=== PATIENT | male | born 1980 | race African-American/Black ===

== ENCOUNTER 2017-11-02 12:27 | Emergency (ER) | payer MEDICAID ==
[2017-11-02 12:55] VITALS: BP 117/80
[2017-11-02] MEDS ORDERED: Cyclobenzaprine 10 MG Tab ONE (13:20)
[2017-11-02] MEDS ORDERED: Naproxen 500 MG Tab ONE (13:20)
--- NOTE | 2017-11-03 17:50 | ER ---
DATE OF SERVICE: 11/02/2017 HPI: This 37-year-old gentleman fell while fishing landing on his right side. He fell on a rail on the edge of the boat that was about 2 feet off the ground from another boat chain and rocked the boat making him unsteady causing him to fall. He presents complaining of pain in his right hip area below his kidney. It feels better though with the topical ice. He does not feel that he can return to work today. PHYSICAL EXAMINATION: Well-developed, well-nourished, in mild distress. Able to toe and heel walk. Able to bend over and touch his toes. No CVA tenderness. No bruising or ecchymosis. He is tender just at the iliac crest. He is able to flex and extend his torso. ASSESSMENT: 1. Fall. 2. Right hip effusion. PLAN: 1. Naprosyn 500 b.i.d. 2. Flexeril 10 mg t.i.d. 3. Off work for 1 to 2 days. NANCY/LEIA /[id number]
== END 2017-11-02 13:20 | disposition home or self-care (01) ==
LOC: LB.ED 12:27
DX: S70.01XA Contusion of right hip, initial encounter (principal); W17.89XA Other fall from one level to another, initial encounter
CPT/HCPCS: 99283; A9270

== ENCOUNTER 2022-08-25 13:07 | Emergency (ER) | payer MEDICARE ==
[2022-08-25] MEDS: Ketorolac 60 MG/2 ML SDV IM ONE ×3 (13:34→13:40)
[2022-08-25] MEDS ORDERED: Ketorolac 60 MG/2 ML SDV ONE (13:37)
[2022-08-25 13:52] VITALS: BP 127/89; PULSE 76
[2022-08-25] MEDS ORDERED: Ibuprofen 400 MG Tab ONE (14:00)
== END 2022-08-25 14:18 | disposition home or self-care (01) ==
LOC: MERGE 13:07 → LB.ED 13:07
DX: M79.601 Pain in right arm (principal)
CPT/HCPCS: 99283; A9270-GY; J1885

== ENCOUNTER 2023-01-01 01:14 | Emergency (ER) | payer MEDICARE, MEDICAID ==
[2023-01-01] MEDS ORDERED: Indomethacin 25 MG Cap ONE (02:00)
[2023-01-01 02:02] VITALS: BP 119/86; PULSE 95
[2023-01-01] MEDS: Indomethacin 25 MG Cap PO STA (02:10)
== END 2023-01-01 02:20 | disposition home or self-care (01) ==
LOC: LB.ED 01:14
DX: M10.9 Gout, unspecified (principal); F17.210 Nicotine dependence, cigarettes, uncomplicated; E66.9 Obesity, unspecified; Z86.16 Personal history of COVID-19; Z79.899 Other long term (current) drug therapy; Z68.35 Body mass index [BMI] 35.0-35.9, adult
CPT/HCPCS: 99283; A9270-GY

== ENCOUNTER 2023-03-31 03:51 | Emergency (ER) | payer MEDICARE, MEDICAID ==
[2023-03-31] MEDS ORDERED: Gabapentin 300 MG Cap PO ONE (04:13)
[2023-03-31] MEDS ORDERED: Cyclobenzaprine 10 MG Tab PO ONE (04:13)
[2023-03-31] MEDS ORDERED: Ketorolac 60 MG/2 ML SDV IM ONE (04:14)
[2023-03-31] MEDS ORDERED: Cyclobenzaprine 10 MG Tab ONE (04:20)
[2023-03-31] MEDS ORDERED: Ketorolac 60 MG/2 ML SDV ONE (04:20)
[2023-03-31] MEDS ORDERED: Cyclobenzaprine 5 MG Tab ONE (04:30)
[2023-03-31] MEDS ORDERED: Gabapentin 300 MG Cap ONE (04:30)
[2023-03-31 04:44] VITALS: BP 116/79; PULSE 91
== END 2023-03-31 04:35 | disposition home or self-care (01) ==
LOC: SUPCPDRO 03:51 → LB.ED 03:51
DX: M54.10 Radiculopathy, site unspecified (principal); F17.210 Nicotine dependence, cigarettes, uncomplicated; E66.9 Obesity, unspecified; Z86.16 Personal history of COVID-19; Z68.34 Body mass index [BMI] 34.0-34.9, adult
CPT/HCPCS: 96372; 99283; A9270-GY; J1885

== ENCOUNTER 2023-06-07 01:53 | Emergency (ER) | payer MEDICARE, MEDICAID ==
[2023-06-07] MEDS ORDERED: Naproxen 500 MG Tab ONE (02:34)
[2023-06-07] MEDS ORDERED: traMADol 50 MG Tab ONE (02:34)
[2023-06-07] MEDS ORDERED: Cyclobenzaprine 10 MG Tab ONE (02:34)
[2023-06-07 03:42] VITALS: BP 110/78; PULSE 81
== END 2023-06-07 02:55 | disposition home or self-care (01) ==
LOC: LB.ED 01:53
DX: M54.12 Radiculopathy, cervical region (principal); E66.9 Obesity, unspecified; Z68.41 Body mass index [BMI] 40.0-44.9, adult; Z86.16 Personal history of COVID-19
CPT/HCPCS: 99283; A9270

== ENCOUNTER 2023-11-10 15:26 | Emergency (ER) | payer MEDICARE, OTHER ==
[2023-11-10 15:40] VITALS: BP 144/97; PULSE 111
[2023-11-10] MEDS: Orphenadrine 60 MG/2 ML Inj IM ONE (16:03)
[2023-11-10] MEDS: Ketorolac 30 MG/ML SDV IM ONE (16:09)
[2023-11-10] MEDS: Lidocaine 5% 700 MG Patch TOP ONE (16:15)
== END 2023-11-10 16:17 | disposition home or self-care (01) ==
LOC: LB.ED 15:26
DX: G89.29 Other chronic pain (principal); M54.2 Cervicalgia; M79.601 Pain in right arm; M62.838 Other muscle spasm; E66.9 Obesity, unspecified; F17.210 Nicotine dependence, cigarettes, uncomplicated; Z79.899 Other long term (current) drug therapy; Z86.16 Personal history of COVID-19; Z68.36 Body mass index [BMI] 36.0-36.9, adult
CPT/HCPCS: 96372; 99283; A9270; J1885; J2360

== ENCOUNTER 2023-11-18 12:38 | Emergency (ER) | payer MEDICARE, OTHER ==
[2023-11-18 12:54] VITALS: BP 107/77; PULSE 62
== END 2023-11-18 13:10 ==
LOC: LB.ED 12:38
DX: Z11.1 Encounter for screening for respiratory tuberculosis (principal); E66.9 Obesity, unspecified; F17.210 Nicotine dependence, cigarettes, uncomplicated; Z86.16 Personal history of COVID-19; Z79.899 Other long term (current) drug therapy; Z68.34 Body mass index [BMI] 34.0-34.9, adult
CPT/HCPCS: 71045; 99283

== ENCOUNTER 2024-09-28 18:35 | Emergency (ER) | payer MEDICARE, MEDICAID ==
[2024-09-28] MEDS: Bacitracin Oint 1 GM U/D Packet TOP ONE (20:13)
[2024-09-28] MEDS: Lidocaine 1% 5 ML VIAL INJECT ONE (20:14)
[2024-09-28] MEDS: Diphtheria,Pertussis(Acell),Tetanus Vaccine 0.5 ML Syringe IM ONE (20:22)
[2024-09-28 22:14] VITALS: BP 138/93; PULSE 110
== END 2024-09-28 20:32 ==
LOC: LB.ED 18:35
DX: S61.411A Laceration without foreign body of right hand, initial encounter (principal); Z23 Encounter for immunization; E66.9 Obesity, unspecified; Z68.36 Body mass index [BMI] 36.0-36.9, adult; Z86.16 Personal history of COVID-19; Z79.899 Other long term (current) drug therapy; W26.8XXA Contact with other sharp object(s), not elsewhere classified, initial encounter
CPT/HCPCS: 12002; 73090-RT; 73120-RT; 90471; 90715; 99283; 99283-25; J2003